=== PATIENT | male | born 1955 | race African-American/Black ===

== ENCOUNTER 2022-04-21 05:18 | Emergency (ER) | payer BC, OTHER ==
[~2022-04-21] VITALS: Ht 167.6 cm; Wt 79.4 kg
[2022-04-21 05:20] VITALS: BP 173/94
--- NOTE | 2022-04-21 05:21 | NUR ---
Dr. Theodore examining patient.
--- NOTE | 2022-04-21 05:24 | NUR ---
PT TAKEN TO BED 10
--- NOTE | 2022-04-21 05:27 | NUR ---
0527- NOTIFIED CT FOR CODE BRAIN
--- NOTE | 2022-04-21 05:33 | NUR ---
PT TAKEN TO CT
[2022-04-21 05:48] LABS: BASOPHILS # (AUTO) 0.1 K/uL (0.00-0.22); EOSINOPHILS # (AUTO) 0.1 K/uL (0-0.4); EOSINOPHILS % (AUTO) 1.5 % (0.0-4.0); HEMATOCRIT 39.2 % (36-52); LYMPHOCYTES # (AUTO) 2.6 K/uL (2.0-11.5); LYMPHOCYTES % (AUTO) 43.9 % (20.5-51.1); MEAN CORPUSCULAR HEMOGLOBIN 32 pg (27-31); MEAN CORPUSCULAR HGB CONC 33 g/dL (33-37); MEAN CORPUSCULAR VOLUME 95.2 fL (80-94); MONOCYTES # (AUTO) 0.6 K/uL (0.8-1.0); MONOCYTES % (AUTO) 10.3 % (1.7-9.3); NEUTROPHILS # (AUTO) 2.5 K/uL (1.8-7.7); NEUTROPHILS % (AUTO) 43.3 % (42.2-75.2); PLATELET COUNT (AUTO) 210 K/uL (140-450); RED BLOOD CELL COUNT(AUTO) 4.12 MIL/uL (4.20-6.10); RED CELL DISTRIBUTION WIDTH 12.7 % (11.6-13.7); WHITE BLOOD COUNT (AUTO) 5.9 K/uL (4.8-10.8)
--- NOTE | 2022-04-21 05:52 | NUR ---
PT BACK FROM CT
[2022-04-21 05:59] LABS: PROTHROMBIN TIME 10.7 secs (10.8-13.4)
--- NOTE | 2022-04-21 06:45 | NUR ---
06:40 Spoke with Hussain from the [facility]. Will call back for further information
[2022-04-21 07:12] LABS: ALBUMIN 3.6 g/dL (3.4-5.0); ANION GAP 11.8 (8-16); ASPARTATE AMINOTRANSFERASE 33 U/L (15-37); CARBON DIOXIDE 29.9 mmol/L (21-32); CHLORIDE 106 mmol/L (98-107); CREATININE 1.1 mg/dL (0.6-1.3); GFR ARICAN-AMERICAN 85 mL/min (>90); GLUCOSE 132 mg/dL (74-106); POTASSIUM 3.7 mmol/L (3.5-5.1); SODIUM SERUM 144 mmol/L (136-145); TOTAL BILIRUBIN 1.4 mg/dL (0.0-1.0); UREA NITROGEN, BLOOD 10 mg/dL (7-18)
--- NOTE | 2022-04-21 07:16 | NUR ---
Note undone in EDM - 04/21/22 at 0724 by [facility] Patient to be transferred to [facility]. Is being transferred due to higher level of care. Receiving facility has accepting physician and available space. ER physician has signed transfer form. Patient or responsible green party has agreed to transfer and signed form. Patient belongings inventoried and will be sent with patient. Copy of nursing notes, lab reports, EKG, Physicians Orders and X-rays to be sent with patient. Report called to Lokesh systems planner at receiving facility. [facility] ambulance service has been called for transfer. ETA is 30mins-45mins.
--- NOTE | 2022-04-21 07:18 | NUR ---
Adan urban in EDM - 04/21/22 at 0724 by [facility] Spoke with Lokesh MERRITT from [facility] would like to call the Charge through direct line [phone] per Lokesh call once pt is on the way to [facility]
--- NOTE | 2022-04-21 07:22 | NUR ---
REPORT TO APARNA MERRITT
--- NOTE | 2022-04-21 07:25 | NUR ---
07:16 Patient to be transferred to [facility]. Is being transferred due to higher level of care. Receiving facility has accepting physician and available space. ER physician has signed transfer form. Patient or responsible green party has agreed to transfer and signed form. Patient belongings inventoried and will be sent with patient. Copy of nursing notes, lab reports, EKG, Physicians Orders and X-rays to be sent with patient. Report called to Lokesh crab meat processor at receiving facility. [facility] ambulance service has been called for transfer. ETA is 30mins-45mins. 07:18 Spoke with Lokesh RN from [facility] would like to call the Charge through direct line [phone] per Lokesh call once pt is on the way to [facility]
[2022-04-21 07:33] LABS: APPEARANCE,URINE CLEAR (CLEAR); BILIRUBIN,URINE NEGATIVE (NEGATIVE); BLOOD, URINE TRACE-I (NEGATIVE); COLOR,URINE YELLOW (YELLOW); LEUKOCYTE ESTERASE ,URINE NEGATIVE (NEGATIVE); NITRITE, URINE NEGATIVE (NEGATIVE); UGLUCOSE NEGATIVE (NEGATIVE)
--- NOTE | 2022-04-21 07:42 | NUR ---
BEDSIDE REPORT GIVEN TO [facility]. PT STABLE FOR TX TO [place], SPOKE TO MI MERRITT TO MAKE AWARE OF 10 MIN ETA TO [place].
[2022-04-21 07:43] VITALS: BP 179/99
[2022-04-21 08:04] LABS: RBC,URINE 0-5 /HPF (0-5); WBC,URINE 0-5 /HPF (0-5)
== END 2022-04-21 07:43 | disposition short-term general hospital (02) ==
LOC: MED 05:18
DX: R29.810 Facial weakness (principal); Z20.822 Contact with and (suspected) exposure to COVID-19; I10 Essential (primary) hypertension
CPT/HCPCS: 36415; 70450; 70496; 70498; 71045; 80053; 81001; 84484; 85025; 85610; 85730; 86886; 86900; 86901; 87426; 93005; 99291; Q0092; Q9967